=== PATIENT | female | born 1975 | race Caucasian/White ===

== ENCOUNTER 2018-03-19 23:17 | Emergency (ER) | payer SELFPAY ==
[2018-03-20] MEDS ORDERED: DEXAMETHASONE SOD PHOS INJ 10 MG/1 ML VIAL IM ONE (00:07)
--- NOTE | 2018-03-20 00:07 | ER Document Report ---
HPI - HPI Pain Level: 4 Notes: Patient is a 42-year-old female who presents to the ED complaining of a sore throat/nasal radha. over the last 2 days with occasional left ear pain. Patient states that she is still able to eat and drink without any difficulties, but does have a decreased p.o. intake due to the discomfort. She is urinating normally and having normal bowel movements. No history of peritonsillar/ tonsillar abscess. No other concerns or complaints at this time. She has been using some vbys-ycj-impchiv meds with minimal relief. Denies any headache, fever, neck pain, URI, chest pain, palpitations, syncope, cough, shortness of breath, wheeze, dyspnea, abdominal pain, nausea/vomiting/diarrhea, urinary retention, dysuria, hematuria, or rash. - ROS Systems Reviewed and Negative: Yes All other systems reviewed and negative - REPRODUCTIVE Reproductive: DENIES: : Past Medical History - Social History Smoking Status: Unknown if Ever Smoked Family History: Reviewed & Not Pertinent - Past Medical History Cardiac Medical History: Reports: Hx Hypertension Neurological Medical History: Reports: Hx Migraine Endocrine Medical History: Reports: Hx Hypothyroidism Past Surgical History: Reports: Hx Cholecystectomy, Hx Gastric Bypass Surgery, Hx Hysterectomy, Hx Tubal Ligation - Immunizations Hx Diphtheria, Pertussis, Tetanus Vaccination: Yes Vertical Provider Document - CONSTITUTIONAL Agree With Documented VS: Yes Notes: PHYSICAL EXAMINATION: GENERAL: Well-appearing, well-nourished and in no acute distress. A&Ox4. Answers questions appropriately. Moves comfortably w/o notable distress HEAD: Atraumatic, normocephalic. EYES: Pupils equal round and reactive to light, extraocular movements intact, sclera anicteric, conjunctiva are normal. ENT: EAC clear b/l. TM's intact b/l without erythema, fluid, or perforation. Nares patent and without discharge. oropharynx mild erythema without exudates. 1+ tonsilar hypertrophy without erythema or exudate. No palatine shift. Uvula midline. No tongue protrusion. No drooling, hoarseness, or airway compromise. Moist mucous membranes. No sinus tenderness. NECK: Normal range of motion, supple without lymphadenopathy. No rigidity/ meningismus. LUNGS: Breath sounds clear to auscultation bilaterally and equal. No wheezes rales or rhonchi. No retractions HEART: Regular rate and rhythm without murmurs, rubs, gallops. ABDOMEN: Soft, nontender, nondistended abdomen. No guarding, no rebound. No masses appreciated. Normal bowel sounds present. No CVA tenderness bilaterally. No hepatosplenomegaly. NEUROLOGICAL: Normal speech, normal gait. PSYCH: Normal mood, normal affect. SKIN: Warm, Dry, normal turgor, no rashes or lesions noted. - INFECTION CONTROL TRAVEL OUTSIDE OF THE [place] IN LAST 30 DAYS: No Course - Re-evaluation Re-evalutation: 03/20/18 00:32 Patient is an afebrile, well-hydrated, 42-year-old female who presents to the ED with acute pharyngitis, suspect viral. Vitals are acceptable without any significant tachycardia, tachypnea, or hypoxia. PE is otherwise unremarkable. Rapid strep was negative with a throat culture pending. Patient is nontoxic- appearing and is tolerating p.o. without difficulties. No further labs or imaging warranted at this time. Decadron given IM today. Low suspicion for any meningitis, sepsis, peritonsillar/pharyngeal abscess, respiratory compromise , Leo's, or other emergent systemic condition at this time. Patient is aware this condition can change from initial presentation and she needs to monitor symptoms closely. Conservative measures otherwise for symptoms. Recheck with your PCM in 2-3 days. Return to the ED with any worsening/ concerning symptoms otherwise as reviewed in discharge. Patient is in agreement. - Vital Signs Vital signs: Temp Pulse Resp BP Pulse Ox 98.0 F 74 16 121/76 100 03/19/18 23:25 03/19/18 23:25 03/19/18 23:25 03/19/18 23:25 03/19/18 23:25 Discharge - Discharge Clinical Impression: Acute pharyngitis Qualifiers: Pharyngitis/tonsillitis etiology: unspecified etiology Qualified Code(s): J02.9 - Acute pharyngitis, unspecified Condition: Stable Disposition: HOME, SELF-CARE Instructions: Sore Throat ([facility]) Additional Instructions: Maintain adequate fluid intake Take meds as directed Salt water gargles, throat sprays, mouthwash rinse, peroxide gargles tylenol/ibuprofen as needed over the counter cold medication as needed for symptoms F/u: with your PCM in 2-3 days for a recheck Consider consult with ENT for ongoing/worsening symptoms Return to the ED with any fever, worsening pain, chest pain, neck pain/stiffness , shortness of breath, cough, drooling, trouble swallowing/breathing, abdominal pain, n/v/d, rash, or worsening/concerning symptoms otherwise. Referrals: TESSA JESSICA DO [ASSOCIATE] - Follow up as needed
[2018-03-20 01:20] VITALS: BP 132/67
== END 2018-03-20 01:17 | disposition home or self-care (01) ==
LOC: ER 23:17
DX: J02.9 Acute pharyngitis, unspecified (principal); R09.81 Nasal congestion; H92.02 Otalgia, left ear; I10 Essential (primary) hypertension
CPT/HCPCS: 99283; 96372; 87070; 87880; J1100

== ENCOUNTER 2018-11-17 11:29 | Emergency (ER) | payer SELFPAY ==
[2018-11-17 11:36] VITALS: BP 103/73
[2018-11-17] MEDS ORDERED: MORPHINE SULFATE 10 MG/ML INJ IV ONE ×2 (12:17→14:29)
[2018-11-17] MEDS ORDERED: NORMAL SALINE 1000 ML 1,000 ML IV PRN (12:17)
[2018-11-17] MEDS ORDERED: ONDANSETRON HCL INJ/PF 4 MG/2 ML SDV IV ONE ×2 (12:18→14:29)
--- NOTE | 2018-11-17 12:21 | ER Document Report ---
ED Medical Screen (RME) - General Chief Complaint: Abdominal Pain Stated Complaint: ABDOMINAL PAIN Time Seen by Provider: 11/17/18 12:06 TRAVEL OUTSIDE OF THE [place] IN LAST 30 DAYS: No - HPI Notes: 11/17/18 12:19 patient is a 43 yr old female that presents to the emergency department for chief complaint of Sudden onset nausea vomiting with severe epigastric pain that started approximately 6 hours ago. Patient has had gastric bypass surgery after having a sleeve and LAP-BAND that was unsuccessful, gastric bypass surgery in 2013. 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 Patient did have 2 bowel movements today. Is any fevers or chills. Is not taking anything vgbl-lpj-ktuovxk medication. worse with time, patient feels better bent over in chair. Other than noted above, the 12 point review of systems was reviewed with the patient and were negative, all pertinent findings are included in the HPI. PHYSICAL EXAMINATION: Vital signs reviewed. GENERAL: Well-appearing, well-nourished and in moderate distress HEAD: Atraumatic, normocephalic. NECK: Normal range of motion CV: Heart regular rate and rhythm LUNGS: No respiratory distress ABD: epigastric abd pain Musculoskeletal: Normal range of motion NEUROLOGICAL: Normal speech PSYCH: Normal mood, normal affect. MDM: Patient seen and examined for rapid initial assessment. Vital signs reviewed. A comprehensive ED assessment and evaluation of the patient, analysis of test results and completion of the medical decision making process will be conducted by additional ED providers. *Note is created using voice recognition software and may contain spelling, syntax or grammatical errors. - Related Data Allergies/Adverse Reactions: fluorescein [Fluorescein] Allergy (Verified 11/17/18 12:11) Past Medical History - Past Medical History Cardiac Medical History: Reports: Hx Hypertension Neurological Medical History: Reports: Hx Migraine Endocrine Medical History: Reports: Hx Hypothyroidism Renal/ Medical History: Denies: Hx Peritoneal Dialysis Past Surgical History: Reports: Hx Cholecystectomy, Hx Gastric Bypass Surgery, Hx Hysterectomy, Hx Tubal Ligation - Immunizations Hx Diphtheria, Pertussis, Tetanus Vaccination: Yes Physical Exam - Vital signs Vitals: Temp Pulse Resp BP Pulse Ox 98.0 F 58 L 20 103/73 98 11/17/18 11:34 11/17/18 11:34 11/17/18 11:34 11/17/18 11:34 11/17/18 11:34 Course - Vital Signs Vital signs: Temp Pulse Resp BP Pulse Ox 98.0 F 58 L 20 103/73 98 11/17/18 11:34 11/17/18 11:34 11/17/18 11:34 11/17/18 11:34 11/17/18 11:34
[2018-11-17 12:50] LABS: ABSOLUTE BASOPHILS # (AUTO) 0.1 10^3/uL (0.0-0.2); ABSOLUTE EOSINOPHILS # (AUTO) 0.1 10^3/uL (0.0-0.6); ABSOLUTE MONOCYTES (AUTO) 0.4 10^3/uL (0.1-1.4); ABSOLUTE NEUT (AUTO) 3.3 10^3/uL (1.7-8.2); BASOPHILS % (AUTO) 1.2 % (0-2); EOSINOPHILS % (AUTO) 1.6 % (0-6); HEMATOCRIT 42.7 % (36.0-47.0); HEMOGLOBIN 14.4 g/dL (12.0-15.5); LYMPHOCYTES % (AUTO) 21.4 % (13-45); MEAN CORPUSCULAR HEMOGLOBIN 28.3 pg (27.0-33.4); MEAN CORPUSCULAR HGB CONC 33.9 g/dL (32.0-36.0); MEAN CORPUSCULAR VOLUME 84 fl (80-97); PLATELET COUNT 232 10^3/uL (150-450); RED CELL DISTRIBUTION WIDTH 14.1 % (11.5-14.0); SEGMENTED NEUTROPHILS % (AUTO) 67.8 % (42-78); TOTAL CELLS COUNTED % (AUTO) 100 %; WHITE BLOOD COUNT 4.9 10^3/uL (4.0-10.5)
[2018-11-17] MEDS ORDERED: KETOROLAC TROMETHAMINE INJ/PF 30 MG/1 ML SDV IV ONE (13:06)
[2018-11-17] MEDS ORDERED: PROCHLORPERAZINE EDISYLATE INJ 10 MG/2 ML VIAL IV ONE (13:06)
[2018-11-17 13:07] LABS: ALANINE AMINOTRANSFERASE 22 U/L (9-52); ALBUMIN 4.4 g/dL (3.5-5.0); ALKALINE PHOSPHATASE 52 U/L (38-126); ANION GAP 7 (5-19); ASPARTATE AMINO TRANSFERASE 15 U/L (14-36); BILIRUBIN,DIRECT 0.3 mg/dL (0.0-0.4); BILIRUBIN,TOTAL 0.6 mg/dL (0.2-1.3); BLOOD UREA NITROGEN 12 mg/dL (7-20); CALCIUM 9.2 mg/dL (8.4-10.2); CARBON DIOXIDE 25 mmol/L (22-30); CHLORIDE 109 mmol/L (98-107); CREATINE KINASE 56 U/L (30-135); GLUCOSE 87 mg/dL (75-110); LIPASE 138.5 U/L (23-300); POTASSIUM 4.6 mmol/L (3.6-5.0); SODIUM 141.4 mmol/L (137-145); TOTAL PROTEIN 7.4 g/dL (6.3-8.2)
--- NOTE | 2018-11-17 13:18 | RADIOLOGY REPORT (SQ) ---
EXAM DESCRIPTION: CHEST SINGLE VIEW COMPLETED DATE/TIME: 11/17/2018 12:52 pm REASON FOR STUDY: epigastric pain COMPARISON: None. EXAM PARAMETERS: NUMBER OF VIEWS: One view. TECHNIQUE: Single frontal radiographic view of the chest acquired. RADIATION DOSE: NA LIMITATIONS: None. FINDINGS: LUNGS AND PLEURA: No opacities, masses or pneumothorax. No pleural effusion. MEDIASTINUM AND HILAR STRUCTURES: No masses. Contour normal. HEART AND VASCULAR STRUCTURES: Heart normal in size. Normal vasculature. BONES: No acute findings. HARDWARE: None in the chest. OTHER: No other significant finding. IMPRESSION: No acute abnormality of the lungs in frontal projection. TECHNICAL DOCUMENTATION: JOB ID: [id number] [employer] All Rights Reserved Reading location - IP/workstation name: [email or web address]
[2018-11-17 13:26] LABS: CREATINE KINASE MB < 0.22 ng/mL (<4.55); TROPONIN I < 0.012 ng/mL
--- NOTE | 2018-11-17 14:15 | RADIOLOGY REPORT (SQ) ---
EXAM DESCRIPTION: CT ABD/PELVIS WITH IV ONLY COMPLETED DATE/TIME: 11/17/2018 1:55 pm REASON FOR STUDY: epigastric pain, hx of gastric bypass w/adhesions COMPARISON: None. TECHNIQUE: CT scan of the abdomen and pelvis performed using helical scanning technique with dynamic intravenous contrast injection. No oral contrast. Images reviewed with lung, soft tissue, and bone windows. Reconstructed coronal and sagittal MPR images reviewed. Delayed images for evaluation of the urinary system also acquired. All images stored on PACS. All CT scanners at this facility use dose modulation, iterative reconstruction, and/or weight based d osing when appropriate to reduce radiation dose to as low as reasonably achievable (ALARA). [facility]: Dose Right [facility]: CareDose [facility]: Dose Right [facility]: Teradose 4D [facility]: Sosedi CONTRAST TYPE AND DOSE: contrast/concentration: Isovue 350.00 mg/ml; Total Contrast Delivered: 94.0 ml; Total Saline Delivered: 70.0 ml RENAL FUNCTION: BUN 12 creatinine 0.64 RADIATION DOSE: CT Rad equipment meets quality standard of care and radiation dose reduction techniq ues were employed. CTDIvol: NaN - NaN mGy. DLP: 0 mGy-cm.. LIMITATIONS: None. FINDINGS: LOWER CHEST: No significant findings. No nodules or infiltrates. LIVER: Normal size. No masses. No dilated ducts. SPLEEN: The size of the spleen is borderline, near 13 cm. PANCREAS: No masses. No significant calcifications. No adjacent inflammation or peripancreatic fluid collections. Pancreatic duct not dilated. GALLBLADDER: Surgically absent. ADRENAL GLANDS: No significant masses or asymmetry. RIGHT KIDNEY AND URETER: No solid masses. No significant calcifications. No hydronephrosis or hyd roureter. LEFT KIDNEY AND URETER: No solid masses. No significant calcifications. No hydronephrosis or hydr oureter. AORTA AND VESSELS: No aneurysm. No dissection. Renal arteries, SMA, celiac without stenosis. RETROPERITONEUM: No retroperitoneal adenopathy, hemorrhage or masses. BOWEL AND PERITONEAL CAVITY: No masses or inflammatory changes. No free fluid or peritoneal masses. APPENDIX: Not identified. PELVIS: No mass. No free fluid. Normal bladder. ABDOMINAL WALL: No masses. No hernias. BONES: No significant or acute findings. OTHER: No other significant finding. IMPRESSION: Borderline splenomegaly. No other significant finding in the abdomen or pelvis. TECHNICAL DOCUMENTATION: JOB ID: [id number] Quality ID # [id number]: Final reports with documentation of one or more dose reduction techniques (e.g., Au tomated exposure control, adjustment of the mA and/or kV according to patient size, use of iterative reconstruction technique) 2010 [employer]- All Rights Reserved Reading location - IP/workstation name: [email or web address]
--- NOTE | 2018-11-17 15:00 | ER Document Report ---
Entered by SHAMEKA BRENNAN SCRIBE 11/17/18 1427 Acting as scribe for:CAMRON CANALES MD ED General - General Chief Complaint: Nausea/Vomiting Stated Complaint: ABDOMINAL PAIN Time Seen by Provider: 11/17/18 12:06 Notes: Patient is a 43-year-old female presenting to the emergency department complaining of abdominal pain with associated vomiting. Patient states that she woke up at 0500 this morning and pain. Patient states that a few minutes after she woke up she began vomiting and the pain has been constant. Patient states that she has had pain similar to this before but nothing has ever been that this severe, or constant. TRAVEL OUTSIDE OF THE [place] IN LAST 30 DAYS: No - Related Data Allergies/Adverse Reactions: fluorescein [Fluorescein] Allergy (Verified 11/17/18 12:11) Past Medical History - General Information source: Patient - Social History Smoking Status: Current Every Day Smoker Cigarette use (# per day): Yes - 1/2 PPD Chew tobacco use (# tins/day): No Smoking Education Provided: No Frequency of alcohol use: Rare Drug Abuse: None Lives with: Family Family History: Reviewed & Not Pertinent Patient has suicidal ideation: No Patient has homicidal ideation: No - Past Medical History Cardiac Medical History: Reports: Hx Hypertension Neurological Medical History: Reports: Hx Migraine Endocrine Medical History: Reports: Hx Hypothyroidism Renal/ Medical History: Reports: Hx Ovarian Cysts GI Medical History: Reports: Hx Gastroesophageal Reflux Disease Past Surgical History: Reports: Hx Abdominal Surgery - Laparoscopy finding adhesions between the liver and the old LAP-BAND port., Hx Cholecystectomy, Hx Gastric Bypass Surgery - Gastric sleeve, then LAP-BAND, then gastric bypass surgery in 2013, Hx Hysterectomy, Hx Tubal Ligation - Immunizations Hx Diphtheria, Pertussis, Tetanus Vaccination: Yes Review of Systems - Review of Systems Constitutional: No symptoms reported EENT: No symptoms reported Cardiovascular: No symptoms reported Respiratory: No symptoms reported Gastrointestinal: See HPI, Abdominal pain, Vomiting Genitourinary: No symptoms reported Female Genitourinary: No symptoms reported Musculoskeletal: No symptoms reported Skin: No symptoms reported Hematologic/Lymphatic: No symptoms reported Neurological/Psychological: No symptoms reported -: Yes All other systems reviewed and negative Physical Exam - Vital signs Vitals: Temp Pulse Resp BP Pulse Ox 98.0 F 58 L 20 103/73 98 11/17/18 11:34 11/17/18 11:34 11/17/18 11:34 11/17/18 11:34 11/17/18 11:34 - Notes Notes: Physical Exam: General: Alert, appears well. HEENT: Normocephalic. Atraumatic. PERRL. Extraocular movements intact. Oropharynx clear. Neck: Supple. Non-tender. Respiratory: No respiratory distress. Clear and equal breath sounds bilaterally. Cardiovascular: Regular rate and rhythm. Abdominal: Right lower quadrant tenderness to palpation. Right lateral-mid abdomen tenderness to palpation. Right upper quadrant tenderness to palpation. Epigastric tenderness to palpation.Guarding on the right side of the abdomen. Decreased Bowel Sounds. Back: Non-tender. No deformity or step off. Extremities: Moves all four extremities. Upper extremities: Normal inspection. Normal ROM. Lower extremities: Normal inspection. No edema. Normal ROM. Neurological: Normal cognition. AAOx4. Normal speech. Psychological: Normal affect. Normal Mood. Skin: Warm. Dry. Normal color. Course - Re-evaluation Re-evalutation: 11/17/18 17:26 Reevaluation after the GI cocktail shows the patient seems to be much more comfortable. She admits that it does feel better but there is still some discomfort. Palpating her abdomen shows the epigastric region to be considerably less tender now than it has been even after she received morphine earlier. She will get a repeat dose of Maalox and viscous lidocaine. Her urinalysis shows 80 ketones, her blood sugar was 87. She will be given a liter of D5 normal saline IV. 11/17/18 18:55 Patient is now sitting up on bed talk with the family. She is feeling much better after the second dose of the GI cocktail. - Vital Signs Vital signs: Temp Pulse Resp BP Pulse Ox 98.0 F 58 L 20 103/73 98 11/17/18 11:34 11/17/18 11:34 11/17/18 11:34 11/17/18 11:34 11/17/18 11:34 - Laboratory Result Diagrams: 11/17/18 12:34 11/17/18 12:34 Laboratory results interpreted by me: 11/17/18 11/17/18 11/17/18 12:34 12:34 16:40 RDW 14.1 H Chloride 109 H Urine Ketones 80 H Urine Blood SMALL H Urine Urobilinogen 2.0 H - Diagnostic Test Radiology reviewed: Image reviewed, Reports reviewed - Chest x-ray is unremarkable. CT scan is read as borderline splenomegaly with no other significant findings in the abdomen pelvis. The scan was done with IV contrast only. I had another radiologist review the scan and she felt that there was some fluid in the right pelvis suggesting a ruptured ovarian follicle or cyst. Recommendation was for upper GI to exclude GI pathology that may have been missed with out oral contrast in the CT scan. Upper GI shows the patient is post gastric bypass. There is a fairly large fundal pouch with mild narrowing of the outlet, but no delay in gastric emptying. There is unprovoked gastroesophageal reflux throughout the study. Discharge - Discharge Clinical Impression: Epigastric abdominal pain, Dehydration GERD (gastroesophageal reflux disease) Qualifiers: Esophagitis presence: esophagitis presence not specified Qualified Code(s): K21.9 - Gastro-esophageal reflux disease without esophagitis Condition: Stable Disposition: HOME, SELF-CARE Additional Instructions: Reflux Disease (GERD) Gastro-Esophageal Reflux Disease (GERD) is caused by stomach acid refluxing back up into the esophagus. The valve at the end of the esophagus may be weak. This is common in persons with a hiatal hernia. GERD symptoms can include indigestion, chest pain, heartburn, or food "sticking." Certain foods, alcohol, and aspirin can make GERD worse. Treatment depends on the severity. Usually, antacids or acid-suppressing medicines are used. When the esophagus is acutely inflamed, the physician will often prescribe membrane-protective drugs such as Carafate. Some patients benefit from medication such as Reglan that tightens the valve at the top of the stomach. Avoid those foods that bring on your symptoms. For many people, these foods are coffee, chocolate, onions, garlic, and carbonated drinks. Don't use alcohol, aspirin, caffeine, or tobacco. Don't eat late at night -- within 4 hours of bedtime. Don't over-eat. If necessary, elevate the head of your bed about 4 inches so that stomach acid will not roll up into your esophagus. Call the doctor if you develop severe chest pain, inability to swallow fluids, fever, or worsening symptoms. Take Prilosec OTC once daily. Eat a very bland diet and avoid carbonated beverages, acidic drinks such as fruit juices, spicy foods, or anything that makes the heartburn worse. Take Mylanta or Maalox between meals and at bedtime for the next few days. Drink lots of water today, as you are a little dehydrated, and the contrast from the CT scan earlier will cause you to become more dehydrated. Elevating the head of the bed may help some with your reflux. Follow-up with local medical doctor if not improving. RETURN TO THE EMERGENCY ROOM IF ANY NEW OR WORSENING SYMPTOMS. Scribe Attestation: 11/17/18 16:13 I personally performed the services described in the documentation, reviewed and edited the documentation which was dictated to the scribe in my presence, and it accurately records my words and actions. I personally performed the services described in the documentation, reviewed and edited the documentation which was dictated to the scribe in my presence, and it accurately records my words and actions.
--- NOTE | 2018-11-17 16:30 | RADIOLOGY REPORT (SQ) ---
EXAM DESCRIPTION: UPPER GI/SM BOWEL COMPLETED DATE/TIME: 11/17/2018 4:13 pm REASON FOR STUDY: post gastric bypass, epigastric R abd pain COMPARISON: PA chest 11/17/2018 CT abdomen pelvis 11/17/2018 TECHNIQUE: Under fluoroscopic guidance, patient ingested effervescent granules followed by thick an d thin barium. Fluoroscopic spot images and routine radiographic images acquired and stored on PACS . Following evaluation of esophagus and stomach, additional barium administered with serial delayed ab dominal radiographs until colonic identification. Fluoroscopic images recorded of the terminal ileu m. 12 MM BARIUM TABLET GIVEN: No. FLUOROSCOPY TIME: 2 minutes 40 seconds 21 digital fluoroscopic images saved to PACS. LIMITATIONS: None. FINDINGS: NEUROMUSCULAR COORDINATION OF SWALLOW: Normal. No aspiration. ESOPHAGEAL MOTILITY: Normal peristalsis. No esophageal spasm. ESOPHAGEAL MUCOSA: Normal mucosa without masses or ulceration. GASTRO-ESOPHAGEAL JUNCTION: No hiatal hernia. However there is unprovoked gastroesophageal reflux th roughout the study to the mid 3rd of the esophagus. STOMACH: Patient has a fairly large fundal gastric pouch of a Sruthi-en-Y bypass. Pouch is about 4 fani es biggger than a usual gastric fundal pouch. There is prompt emptying of the fundal gastric pouch through a narrowed anastomosis to normal caliber efferrent small bowel loop. No ulceration along the gastric outlet is definitely seen. DUODENUM: Excluded from the pathway of barium by Sruthi EN Y. PROXIMAL SMALL BOWEL: Normal as visualized. JEJUNUM: Normal mucosal pattern. No dilatation, segmentation, strictures or masses. ILEUM: Follow-up films demonstrate pooling of contrast in left upper quadrant nondilated small bowel loops. TERMINAL ILEUM AND ILEO-CECAL VALVE: Not yet opacified with barium PROXIMAL COLON: Not yet opacified with barium NON-GI TRACT STRUCTURES: CT scan earlier today. There is IV contrast in nondilated bilateral uretera l and renal collecting systems. Clips right upper quadrant post cholecystectomy. Bilateral SI joint sclerosis OTHER: Findings called to Dr. Roberts in the emergency room IMPRESSION: Post gastric bypass. Fairly large fundal pouch with mild narrowing of the outlet. No d elay in gastric emptying. No gross ulceration at the gastric pouch outlet. Unprovoked gastroesophageal reflux throughout the study By 1 hour, follow-up through small bowel films demonstrate the majority of the oral contrast in nondi stended jejunum and ileum. Contrast had not yet reached the distal ileum/ cecum. COMMENT: Quality ID [id number]: Final reports for procedures using fluoroscopy that document radiation exp osure indices, or exposure time and number of fluorographic images (if radiation exposure indices are not available) TECHNICAL DOCUMENTATION: JOB ID: [id number] [employer]- All Rights Reserved Reading location - IP/workstation name: [email or web address]
[2018-11-17] MEDS ORDERED: LIDOCAINE 2% VISCOUS SOLN 20 ML UDCUP PO ONE ×2 (16:40→17:24)
[2018-11-17] MEDS ORDERED: MAG HYDROX/AL HYDROX/SIMETH SUSP 30 ML UDCUP PO ONE ×2 (16:40→17:24)
[2018-11-17 17:01] LABS: APPEARANCE,URINE CLEAR; BILIRUBIN,URINE NEGATIVE (NEGATIVE); COLOR,URINE YELLOW; GLUCOSE, URINE NEGATIVE (NEGATIVE); KETONES,URINE 80 mg/dL (NEGATIVE); LEUKOCYTE ESTERASE,URINE NEGATIVE (NEGATIVE); NITRITE,URINE NEGATIVE (NEGATIVE); PROTEIN,URINE NEGATIVE (NEGATIVE)
[2018-11-17 17:03] LABS: URINE SPECIFIC GRAVITY > 1.060
[2018-11-17] MEDS ORDERED: DEXTROSE 5%-NORMAL SALINE 1,000 ML IV ONE (17:25)
--- NOTE | 2018-11-17 17:56 | EKG REPORT ---
SEVERITY:- OTHERWISE NORMAL ECG - SINUS BRADYCARDIA : Confirmed by: Shiv Cadet 17-Nov-2018 17:55:39
== END 2018-11-17 19:14 | disposition home or self-care (01) ==
LOC: ER 11:29
DX: K21.9 Gastro-esophageal reflux disease without esophagitis (principal); R10.13 Epigastric pain; E86.0 Dehydration; R11.2 Nausea with vomiting, unspecified; F17.210 Nicotine dependence, cigarettes, uncomplicated
CPT/HCPCS: 93005; 96376; 99284; 96361; 96374; 96375; 36415; 82553; 82550; 83690; 85025; 80053; 81001; 84484; 71045; 74249; 74177; 93010; J3490; J1885; J2270; J0780; J2405; J7042; J7030

== ENCOUNTER → 2019-08-08 | Outpatient (CLI) | payer SELFPAY ==
[2019-08-08 09:05] LABS: A TYPE INFLUENZA AG NEGATIVE (NEGATIVE); B INFLUENZA AG NEGATIVE (NEGATIVE)
--- NOTE | 2019-08-09 15:08 | PDOC RDC NOTE ---
RDC Note - Note Date Date: 08/09/19 Allergy/ Laboratory: fluorescein [Fluorescein] Allergy (Verified 11/17/18 12:11) 08/08/19 08:12 Throat Throat Culture - Final Group A Beta Streptococcus Normal Janie Influenza A (Rapid) NEGATIVE (NEGATIVE) 08/08/19 08:12 Influenza B (Rapid) NEGATIVE (NEGATIVE) 08/08/19 08:12 Group A Strep Rapid NEGATIVE (NEGATIVE) 08/08/19 08:12 Notes: Received positive throat culture results 08/09/2019, 1500, Group A beta Strep. Notified patient by phone. She states she does not have PCP. Educated on care of strep throat, precautions, symptoms to watch for, treatment, and submitted Rx to her pharmacy, [facility].
== END ==
LOC: RDC 08:02
PROVIDERS: ATTEND Registered Nurse
DX: Z20.828 Contact with and (suspected) exposure to other viral communicable diseases (principal)
CPT/HCPCS: 36415; 87070; 87077; 87635; 87804; 87880

== ENCOUNTER 2019-09-02 14:44 | Emergency (ER) | payer SELFPAY ==
[2019-09-02] MEDS ORDERED: KETOROLAC TROMETHAMINE INJ/PF 30 MG/1 ML SDV IM ONE (15:34)
--- NOTE | 2019-09-02 15:40 | ER Document Report ---
ED Head/Face/Scalp Injury - General Chief Complaint: Nose Pain Stated Complaint: NOSE INJURY Time Seen by Provider: 09/02/19 15:34 Primary Care Provider: DENNIS BREWSTER MD [ACTIVE STAFF] - Follow up as needed Mode of Arrival: Ambulatory Information source: Patient Notes: 44-year-old female presented to ED for complaint of pain to her nose since Thursday during intercourse. Patient is alert oriented respirations regular nonlabored speaking in full sentences. She states she was having intercourse on Thursday when she smashed her nose and the pain has been continuing since then. She states she had a video chat with urgent care who told her she would need to come to the emergency room. TRAVEL OUTSIDE OF THE [place] IN LAST 30 DAYS: No - HPI Patient complains to provider of: Contusion, Pain Injury to: Nose Location of problem: Nose Occurred: Last week - Thursday Where: Home, Indoors Timing: Still present Context: Direct blow Loss consciousness: No loss of consciousness Remembers: Injury, Coming to hospital - Related Data Allergies/Adverse Reactions: fluorescein [Fluorescein] Allergy (Verified 11/17/18 12:11) Past Medical History - General Information source: Patient - Social History Smoking Status: Current Every Day Smoker Cigarette use (# per day): Yes - Half pack a day Chew tobacco use (# tins/day): No Smoking Education Provided: Yes - 4 minutes Frequency of alcohol use: Rare Drug Abuse: None Lives with: Spouse/Significant other Family History: Reviewed & Not Pertinent Patient has suicidal ideation: No Patient has homicidal ideation: No - Past Medical History Cardiac Medical History: Reports: Hx Hypertension - Resolved after weight loss Pulmonary Medical History: Reports: Hx Sleep Apnea - Resolved after weight loss EENT Medical History: Reports: None Neurological Medical History: Reports: Hx Migraine Endocrine Medical History: Reports: Hx Diabetes Mellitus Type 2 - Resolved after weight loss, Hx Hypothyroidism Renal/ Medical History: Reports: Hx Ovarian Cysts Malignancy Medical History: Reports: None GI Medical History: Reports: Hx Gastroesophageal Reflux Disease, Hx Ulcer Musculoskeletal Medical History: Reports None Skin Medical History: Reports None Psychiatric Medical History: Reports: None Traumatic Medical History: Reports: None Infectious Medical History: Reports: None Past Surgical History: Reports: Hx Abdominal Surgery - Laparoscopy finding adhesions between the liver and the old LAP-BAND port., Hx Cholecystectomy, Hx Gastric Bypass Surgery - Gastric sleeve, then LAP-BAND, then gastric bypass surgery in 2014, Hx Hysterectomy, Hx Tubal Ligation - Immunizations Hx Diphtheria, Pertussis, Tetanus Vaccination: Yes Review of Systems - Review of Systems Constitutional: No symptoms reported EENT: Nose pain - Since Thursday, "smashed her nose during intercourse " Cardiovascular: No symptoms reported Respiratory: No symptoms reported Gastrointestinal: No symptoms reported Genitourinary: No symptoms reported Female Genitourinary: No symptoms reported Musculoskeletal: No symptoms reported Skin: No symptoms reported Hematologic/Lymphatic: No symptoms reported Neurological/Psychological: No symptoms reported -: Yes All other systems reviewed and negative Physical Exam - Vital signs Vitals: Temp Pulse Resp BP Pulse Ox 98.7 F 72 16 105/71 99 09/02/19 14:48 09/02/19 14:48 09/02/19 14:48 09/02/19 14:48 09/02/19 14:48 Interpretation: Normal - General General appearance: Appears well, Alert - HEENT Head: Normocephalic, Atraumatic Eyes: Normal Pupils: PERRL Ears: Normal External canal: Normal Tympanic membrane: Normal Sinus: Normal Nasal: Swelling Mouth/Lips: Normal Mucous membranes: Normal Pharynx: Normal Neck: Normal - Respiratory Respiratory status: No respiratory distress Chest status: Nontender Breath sounds: Normal Chest palpation: Normal - Cardiovascular Rhythm: Regular Heart sounds: Normal auscultation Murmur: No - Abdominal Inspection: Normal Distension: No distension Bowel sounds: Normal Tenderness: Nontender Organomegaly: No organomegaly - Back Back: Normal, Nontender - Extremities General upper extremity: Normal inspection, Nontender, Normal color, Normal ROM, Normal temperature General lower extremity: Normal inspection, Nontender, Normal color, Normal ROM, Normal temperature, Normal weight bearing. No: Susan's sign - Neurological Neuro grossly intact: Yes Cognition: Normal Orientation: AAOx4 [place] Coma Scale Eye Opening: Spontaneous [place] Coma Scale Verbal: Oriented [place] Coma Scale Motor: Obeys Commands June Coma Scale Total: 15 Speech: Normal Motor strength normal: LUE, RUE, LLE, RLE Sensory: Normal - Psychological Associated symptoms: Normal affect, Normal mood - Skin Skin Temperature: Warm Skin Moisture: Dry Skin Color: Normal Course - Re-evaluation Re-evalutation: 09/02/19 16:43 X-rays were negative no bony fractures to the nose. Patient was given instructions on Tylenol ice packs warm packs and follow-up with primary care. - Vital Signs Vital signs: Temp Pulse Resp BP Pulse Ox 98.3 F 58 L 16 116/70 100 09/02/19 16:42 09/02/19 16:42 09/02/19 16:42 09/02/19 16:42 09/02/19 16:42 - Diagnostic Test Radiology reviewed: Image reviewed, Reports reviewed Discharge - Discharge Clinical Impression: Contusion of nose, initial encounter Condition: Stable Disposition: HOME, SELF-CARE Additional Instructions: CONTUSION: Your injury has resulted in a contusion -- a crushing of the deep tissues. No injury to important structures was detected during the physician's exam. Contusions vary in the amount of pain they cause, and in the length of time required for healing. Typically, the area will become bruised, and will remain painful to touch for two or three weeks. However, most patients are back to working and playing within a few days. After the initial period of rest and cold-packs, your symptoms (together with the doctor's recommendations) will determine how rapidly you can get back to full activity. Usually this means "do what feels okay, but don't do things that hurt." If re-examination was recommended, it's important to follow up as instructed. Call the doctor or return any time if pain increases, if swelling becomes severe, if you develop numbness or weakness in an injured extremity, or if any other alarming symptoms occur. USE OF TYLENOL (ACETAMINOPHEN): Acetaminophen may be taken for pain relief or fever control. It's much safer than aspirin, offering a wider range of "safe" dosages. It is safe during . Some brand names are Tylenol, Panadol, Datril, Anacin 3, Tempra, and Liquiprin. Acetaminophen can be repeated every four hours. The following are maximum recommended dosages: WEIGHT Dose Drops Elixir Chewable(80mg) (LBS.) drprs=droppers tsp=teaspoon 6 40 mg 0.4 ml (1/2) 6-11 80 mg 0.8 ml (full) tsp 1 tab 12-16 120 mg 1 1/2 drprs 3/4 tsp 1 1/2 tabs 17-23 160 mg 2 drprs 1 tsp 2 tabs 24-30 240 mg 3 drprs 1 1/2 tsp 3 tabs 30-35 320 mg 2 tsp 4 tabs 36-41 360 mg 2 1/4 tsp 4 1/2 tabs 42-47 400 mg 2 1/2 tsp 5 tabs 48-53 480 mg 3 tsp 6 tabs 54-59 520 mg 3 1/4 tsp 6 1/2 tabs 60-64 560 mg 3 1/2 tsp 7 tabs 65-70 600 mg 3 3/4 tsp 7 1/2 tabs 71-76 640 mg 4 tsp 8 tabs 77-82 720 mg 4 1/2 tsp 9 tabs 83-88 800 mg 5 tsp 10 tabs >89 pounds or adults 650 mg to 900 mg Acetaminophen can be repeated every four hours. Maximum dose not to exceed 4000 mg a day. These maximum recommended dosages are slightly higher than the dosages written on the product container, but these dosages are very safe and below the toxic dosage for acetaminophen. ICE PACKS: Apply ice packs frequently against the painful area. Many different schedules are recommended, such as "20 minutes on, 20 minutes off" or "one hour ice, two hours rest." If you need to work, you may need to go longer between ic e treatments. You should plan to have the area ice packed AT LEAST one fourth of the time. The ice should be applied over the wrap, tape, or splint, or over a layer of cloth -- not directly against the skin. Some ice bags have a built-in cloth and can be put directly on the skin. Toradol Injection You have been given an injection of ketorolac tromethamine (Toradol). This is an excellent, safe drug for pain control. It also has potent antiinflammatory action. You should have significant pain relief within about one hour. Toradol is not addicting and is non-sedating. It does not interfere with driving or work. Call or return if you develop itching, hives, shortness of breath, or rash. FOLLOW-UP CARE: If you have been referred to a physician for follow-up care, call the physicians office for an appointment as you were instructed or within the next two days. If you experience worsening or a significant change in your symptoms, notify the physician immediately or return to the Emergency Department at any time for re-evaluation. Forms: Smoking Cessation Education, Return to Work Referrals: DENNIS BREWSTER MD [ACTIVE STAFF] - Follow up as needed
--- NOTE | 2019-09-02 16:02 | RADIOLOGY REPORT (SQ) ---
EXAM DESCRIPTION: NOSE/NASAL BONES IMAGES COMPLETED DATE/TIME: 09/02/2019 3:47 pm REASON FOR STUDY: injury pain Thursday COMPARISON: None. NUMBER OF VIEWS: Three view. TECHNIQUE: Images of the facial bones acquired. LIMITATIONS: None. FINDINGS: ORBITS: No fracture or radiopaque foreign body. SINUSES: No mucosal thickening or air fluid levels. FACIAL BONES: No fracture. OTHER: No other finding. IMPRESSION: No fracture or radiopaque foreign body. TECHNICAL DOCUMENTATION: JOB ID: [id number] 2010 [employer]- All Rights Reserved Reading location - IP/workstation name: NEUROPHYSIOLOGICAL TECHNICIAN-[facility]-
[2019-09-02 16:46] VITALS: BP 116/70
== END 2019-09-02 16:46 | disposition home or self-care (01) ==
LOC: ER 14:44
DX: S00.33XA Contusion of nose, initial encounter (principal); X58.XXXA Exposure to other specified factors, initial encounter; Y92.009 Unspecified place in unspecified non-institutional (private) residence as the place of occurrence of the external cause; F17.210 Nicotine dependence, cigarettes, uncomplicated
CPT/HCPCS: 99406; 99283; 96372; 70160; J1885

== ENCOUNTER 2019-10-15 20:53 | Emergency (ER) | payer SELFPAY ==
[2019-10-15 23:57] LABS: ABSOLUTE BASOPHILS # (AUTO) 0.1 10^3/uL (0.0-0.2); ABSOLUTE EOSINOPHILS # (AUTO) 0.1 10^3/uL (0.0-0.6); ABSOLUTE LYMPHOCYTES (AUTO) 1.6 10^3/uL (0.5-4.7); ABSOLUTE MONOCYTES (AUTO) 0.5 10^3/uL (0.1-1.4); ABSOLUTE NEUT (AUTO) 3.5 10^3/uL (1.7-8.2); BASOPHILS % (AUTO) 1.2 % (0-2); EOSINOPHILS % (AUTO) 2.5 % (0-6); HEMATOCRIT 38.2 % (36.0-47.0); HEMOGLOBIN 13.4 g/dL (12.0-15.5); LYMPHOCYTES % (AUTO) 27.4 % (13-45); MEAN CORPUSCULAR HEMOGLOBIN 29.9 pg (27.0-33.4); MEAN CORPUSCULAR HGB CONC 35.1 g/dL (32.0-36.0); MEAN CORPUSCULAR VOLUME 85 fl (80-97); MONOCYTES % (AUTO) 8.5 % (3-13); PLATELET COUNT 245 10^3/uL (150-450); RED BLOOD COUNT 4.48 10^6/uL (3.72-5.28); RED CELL DISTRIBUTION WIDTH 13.4 % (11.5-14.0); SEGMENTED NEUTROPHILS % (AUTO) 60.4 % (42-78); TOTAL CELLS COUNTED % (AUTO) 100 %; WHITE BLOOD COUNT 5.7 10^3/uL (4.0-10.5)
[2019-10-16 00:12] LABS: ANION GAP 6 (5-19); BLOOD UREA NITROGEN 13 mg/dL (7-20); CALCIUM 8.8 mg/dL (8.4-10.2); CARBON DIOXIDE 27 mmol/L (22-30); CHLORIDE 106 mmol/L (98-107); GLUCOSE 74 mg/dL (75-110); POTASSIUM 3.8 mmol/L (3.6-5.0)
[2019-10-16] MEDS ORDERED: CEPHALEXIN 500 MG CAPSULE PO ONE (00:17)
--- NOTE | 2019-10-16 00:25 | ER Document Report ---
ED General - General Chief Complaint: Leg Swelling Stated Complaint: RIGHT LEG PAIN Information source: Patient TRAVEL OUTSIDE OF THE [place] IN LAST 30 DAYS: No - HPI Notes: 44-year-old female no significant medical history presents with several days of gradual onset gradually worsening constant spreading right lower leg redness pain and warmth without associated symptoms. Patient had sunburn last week and it resolved and then this redness developed shortly after. Patient became worried that this was a DVT because she had that in the past. Patient denies any fever, nausea vomiting, immune compromise, diabetes, HIV, recent antibiotics, lower extremity edema, chest pain, shortness of breath, trauma - Related Data Allergies/Adverse Reactions: fluorescein [Fluorescein] Allergy (Verified 11/17/18 12:11) Past Medical History - General Information source: Patient - Social History Smoking Status: Current Every Day Smoker Family History: Reviewed & Not Pertinent Patient has homicidal ideation: No - Past Medical History Cardiac Medical History: Reports: Hx Hypertension - Resolved after weight loss Pulmonary Medical History: Reports: Hx Sleep Apnea - Resolved after weight loss Neurological Medical History: Reports: Hx Migraine Endocrine Medical History: Reports: Hx Diabetes Mellitus Type 2 - Resolved after weight loss, Hx Hypothyroidism Renal/ Medical History: Reports: Hx Ovarian Cysts GI Medical History: Reports: Hx Gastroesophageal Reflux Disease, Hx Ulcer Past Surgical History: Reports: Hx Abdominal Surgery - Laparoscopy finding adhesions between the liver and the old LAP-BAND port., Hx Cholecystectomy, Hx Gastric Bypass Surgery - Gastric sleeve, then LAP-BAND, then gastric bypass surgery in 2013, Hx Hysterectomy, Hx Tubal Ligation - Immunizations Hx Diphtheria, Pertussis, Tetanus Vaccination: Yes Review of Systems - Review of Systems Notes: REVIEW OF SYSTEMS: CONSTITUTIONAL : Denies fever, chills, or sweats. EENT: Denies recent cold/sinus symptoms, denies throat pain CARDIOVASCULAR: Denies chest pain, [place]A RESPIRATORY: Denies cough, denies shortness of breath. GASTROINTESTINAL: Denies abdominal pain, nausea/vomiting. GENITOURINARY: Denies difficulty urinating, painful urination. FEMALE GENITOURINARY: Denies abnormal vaginal bleeding, vaginal discharge. MUSCULOSKELETAL: Denies neck pain, back pain. SKIN: +rash or skin lesions. HEMATOLOGIC : Denies easy bruising or bleeding. LYMPHATIC: Denies swollen, enlarged glands. NEUROLOGICAL: Denies headache, denies change in gait. PSYCHIATRIC: Denies anxiety or stress or depression. Physical Exam - Vital signs Vitals: Temp Pulse Resp BP Pulse Ox 98.8 F 71 16 125/67 100 10/15/19 21:32 10/15/19 21:32 10/15/19 21:32 10/15/19 21:32 10/15/19 21:32 - Notes Notes: PHYSICAL EXAMINATION: GENERAL: Well-appearing, well-nourished, talkative pleasant smiling middle-aged woman without any visible signs of discomfort sitting up in stretcher HEAD: Atraumatic, normocephalic. EYES: Pupils equal round and appropriate constriction, sclera anicteric, conjunctiva are normal. ENT: nares patent, moist mucous membranes. NECK: Normal range of motion, supple without lymphadenopathy LUNGS: Normal respiratory rate and effort, speaking in full sentences HEART: Regular rate, no JVD, no lower extremity edema ABDOMEN: Soft, nontender EXTREMITIES: Normal range of motion, no edema, area of erythema, warmth, and tenderness approximately 5 cm x 10 cm on lateral mid right lower leg without any edema, fluctuance, or discharge NEUROLOGICAL: Awake, alert, conversing appropriately, moves all extremities spontaneously. PSYCH: Normal mood, normal affect. SKIN: Warm, Dry, normal turgor Course - Re-evaluation Re-evalutation: 10/16/19 00:35 Exam consistent with nonpurulent cellulitis. Likely precipitated by sunburn. No immune compromise, no risk factors for complicated course. Performed bedside compression two-point ultrasound given patient's worries but presentation not consistent with DVT, two-point femoral and popliteal compression ultrasound negative fully compressible. Patient ready for discharge on Keflex with PCP follow-up. Given extensive return to ED precautions which patient demonstrated understanding of, denied having any other questions or concerns at time of discharge. - Vital Signs Vital signs: Temp Pulse Resp BP Pulse Ox 98.8 F 71 16 125/67 100 10/15/19 21:35 10/15/19 21:32 10/15/19 21:32 10/15/19 21:32 10/15/19 21:32 - Laboratory Result Diagrams: 10/15/19 23:39 10/15/19 23:39 Laboratory results interpreted by me: 10/15/19 23:39 Glucose 74 L Procedures - Ultrasound/Bedside Ultrasound/Bedside Time completed: 00:15 Ultrasound: Normal Notes: 10/16/19 00:37 Popliteal and femoral right compression ultrasound negative for DVT. Discharge - Discharge Clinical Impression: Cellulitis Qualifiers: Site of cellulitis: extremity Site of cellulitis of extremity: lower extremity Laterality: right Qualified Code(s): L03.115 - Cellulitis of right lower limb Condition: Good Disposition: HOME, SELF-CARE Additional Instructions: Cellulitis You have an infection of your skin and underlying soft tissues called cellulitis. This is due to bacteria, which can enter through any break in the skin, or even through an irritated hair follicle. Untreated, cellulitis will usually worsen. Antibiotics are required. Usually, warm packs or warm soaks, and elevation of the infected area are recommended. You should start getting better within 24 to 36 hours. Most infections respond quickly to the right medication. Follow-up care is important, however, to check for abscess (boil) formation, unsuspected foreign body, or resistant infection. If you develop fever, chills, or if the area of infection is becoming rapidly more swollen or painful, call the doctor or return to the emergency department at once. Take all antibiotics as prescribed unless you have an allergic reaction, in which case stop taking antibiotics immediately and call your doctor or return to the ED. Prescriptions: Cephalexin Monohydrate [Keflex 500 mg Capsule] 500 mg PO Q6H 5 Days #20 capsule
[2019-10-16 01:02] VITALS: BP 115/65
== END 2019-10-16 00:58 | disposition home or self-care (01) ==
LOC: ER 20:53
DX: L03.115 Cellulitis of right lower limb (principal); F17.200 Nicotine dependence, unspecified, uncomplicated; Z88.8 Allergy status to other drugs, medicaments and biological substances; Z98.84 Bariatric surgery status
CPT/HCPCS: 36415; 80048; 81025; 85025; 99284

== ENCOUNTER 2019-11-26 21:55 | Emergency (ER) | payer SELFPAY ==
--- NOTE | 2019-11-26 22:11 | ER Document Report ---
ED Medical Screen (RME) - General Chief Complaint: Insect Bite Stated Complaint: RIGHT THIGH SPIDER BITE Time Seen by Provider: 11/26/19 22:06 Mode of Arrival: Ambulatory Information source: Patient Notes: HPI; 44-year-old female presents the emergency room with possible spider bite to her posterior right thigh that happened a week ago. Has any increasing redness since Thursday. Denies any fevers. Has been using topical antibiotic ointment without relief. PE: Alert and oriented x3. Mild distress noted. There is approximately a 5 cm fluctuant abscess that is noted to the right posterior thigh. Tender to palpation. No active discharge or draining noted. Lungs: Clear to auscultation without rales, rhonchi, wheezes. Heart: Regular rate rhythm without murmurs, rubs, gallops. I have greeted and performed a rapid initial assessment of this patient. A comprehensive ED assessment and evaluation of the patient, analysis of test results and completion of the medical decision making process will be conducted by additional ED providers. I have specifically instructed the patient or family members with the patient to immediately return to any nursing staff should anything change in the patient's condition or with their chief complaint. TRAVEL OUTSIDE OF THE [place] IN LAST 30 DAYS: No - Related Data Allergies/Adverse Reactions: fluorescein [Fluorescein] Allergy (Verified 11/17/18 12:11) Past Medical History - Past Medical History Cardiac Medical History: Reports: Hx Hypertension - Resolved after weight loss Pulmonary Medical History: Reports: Hx Sleep Apnea - Resolved after weight loss Neurological Medical History: Reports: Hx Migraine Endocrine Medical History: Reports: Hx Diabetes Mellitus Type 2 - Resolved after weight loss, Hx Hypothyroidism Renal/ Medical History: Reports: Hx Ovarian Cysts GI Medical History: Reports: Hx Gastroesophageal Reflux Disease, Hx Ulcer Past Surgical History: Reports: Hx Abdominal Surgery - Laparoscopy finding adhesions between the liver and the old LAP-BAND port., Hx Cholecystectomy, Hx Gastric Bypass Surgery - Gastric sleeve, then LAP-BAND, then gastric bypass surgery in 2013, Hx Hysterectomy, Hx Tubal Ligation - Immunizations Hx Diphtheria, Pertussis, Tetanus Vaccination: Yes Physical Exam - Vital signs Vitals: Temp Pulse Resp BP Pulse Ox 98.5 F 70 22 H 113/68 99 11/26/19 22:00 11/26/19 22:00 11/26/19 22:00 11/26/19 22:00 11/26/19 22:00 Course - Vital Signs Vital signs: Temp Pulse Resp BP Pulse Ox 98.5 F 70 22 H 113/68 99 11/26/19 22:00 11/26/19 22:00 11/26/19 22:00 11/26/19 22:00 11/26/19 22:00
[2019-11-27] MEDS ORDERED: LIDOCAINE 1%/EPINEPHRINE INJ 20 ML VIAL INJ ONE (00:30)
[2019-11-27] MEDS ORDERED: OXYCODONE-ACETAMINOPHEN 5-325 MG TABLET PO ONE (00:31)
[2019-11-27] MEDS ORDERED: PROMETHAZINE HCL 25 MG TABLET PO ONE (00:31)
--- NOTE | 2019-11-27 00:34 | ER Document Report ---
ED Skin Rash/Insect Bite/Abscs - General Chief Complaint: Abscess Stated Complaint: RIGHT THIGH SPIDER BITE Time Seen by Provider: 11/26/19 22:06 Mode of Arrival: Ambulatory Notes: Patient is a 44-year-old female that comes to the emergency department for chief complaint of an abscess to the back of her right thigh worsening for 1 week. She states she saw a little bit of clear drainage come out a couple of days ago but there has been no significant drainage, area has become worse with increased swelling and pain. Patient denies fever/chills, nausea/vomiting, or history of the same. She does not have diabetes. TRAVEL OUTSIDE OF THE [place] IN LAST 30 DAYS: No - Related Data Allergies/Adverse Reactions: fluorescein [Fluorescein] Allergy (Verified 11/17/18 12:11) Past Medical History - General Information source: Patient - Social History Smoking Status: Current Every Day Smoker Chew tobacco use (# tins/day): No Frequency of alcohol use: Occasional Drug Abuse: None Lives with: Family Family History: Reviewed & Not Pertinent - Past Medical History Cardiac Medical History: Reports: Hx Hypertension - Resolved after weight loss Pulmonary Medical History: Reports: Hx Sleep Apnea - Resolved after weight loss Neurological Medical History: Reports: Hx Migraine Endocrine Medical History: Reports: Hx Diabetes Mellitus Type 2 - Resolved after weight loss, Hx Hypothyroidism Renal/ Medical History: Reports: Hx Ovarian Cysts GI Medical History: Reports: Hx Gastroesophageal Reflux Disease, Hx Ulcer Past Surgical History: Reports: Hx Abdominal Surgery - Laparoscopy finding adhesions between the liver and the old LAP-BAND port., Hx Cholecystectomy, Hx Gastric Bypass Surgery - Gastric sleeve, then LAP-BAND, then gastric bypass surgery in 2013, Hx Hysterectomy - hysterectomy, Hx Tubal Ligation - Immunizations Hx Diphtheria, Pertussis, Tetanus Vaccination: Yes Review of Systems - Review of Systems Constitutional: No symptoms reported EENT: No symptoms reported Cardiovascular: No symptoms reported Respiratory: No symptoms reported Gastrointestinal: No symptoms reported Genitourinary: No symptoms reported Female Genitourinary: No symptoms reported Musculoskeletal: No symptoms reported Skin: See HPI Hematologic/Lymphatic: No symptoms reported Neurological/Psychological: No symptoms reported Physical Exam - Vital signs Vitals: Temp Pulse Resp BP Pulse Ox 98.5 F 70 22 H 113/68 99 11/26/19 22:00 11/26/19 22:00 11/26/19 22:00 11/26/19 22:00 11/26/19 22:00 - Notes Notes: GENERAL: Alert, interacts well. No acute distress. HEAD: Normocephalic, atraumatic. EYES: Pupils equal, round, and reactive to light. Extraocular movements intact. ENT: Oral mucosa moist, tongue midline. Oropharynx unremarkable. Airway patent. LUNGS: Clear to auscultation bilaterally, no wheezes, rales, or rhonchi. No respiratory distress. Non-tender chest wall. HEART: Regular rate and rhythm. No murmur ABDOMEN: Soft, non-tender. Non-distended. EXTREMITIES: There is an indurated, fluctuant abscess in the right mid lateral posterior thigh with some mild surrounding cellulitis but no streaking away from the area. Normal knee, hip, ankle exam, normal distal neurovascular exam, unremarkable exam otherwise. BACK: no cervical, thoracic, lumbar midline tenderness. No saddle anesthesia, normal distal neurovascular exam. Moves all extremities in full range of motion. NEUROLOGICAL: Alert and oriented x3. Normal speech. Cranial nerves II through XII grossly intact. Strength 5/5 in all extremities. PSYCH: Normal affect, normal mood. SKIN: See extremity exam Course - Re-evaluation Re-evalutation: Patient with an isolated abscess in the right mid posterior lateral thigh which was clean, drained, packed. Placed patient on antibiotics. Discussed care, follow-up, and return precautions. Patient states understanding and agreement with plan. - Vital Signs Vital signs: Temp Pulse Resp BP Pulse Ox 97.4 F 64 14 104/50 L 100 11/27/19 01:46 11/27/19 01:46 11/27/19 01:46 11/27/19 01:46 11/27/19 01:46 Procedures - Incision and Drainage Right posterior thigh Type: Single Anesthetic type: 1% Lidocaine w/epi mL's of anesthetic: 8 I&D procedure: Shurclens applied, Iodoform packing placed, Sterile dressing applied Incision Method: Incision made by scalpel Amount/type of drainage: Moderate amount of purulent drainage, small amount of bloody drainage Discharge - Discharge Clinical Impression: Abscess Condition: Stable Disposition: HOME, SELF-CARE Additional Instructions: The abscess has been drained. Remove the packing from the area in 48 hours. Keep absorbing clean dressing over the area, clean the area with soap and water, take the antibiotic as prescribed to completion. Recommend that you rest and allow this to heal initially. Follow-up with primary care. Return if you worsen including developing or spreading redness, increased welling or pain, fever, or any other concerning symptoms. Prescriptions: Sulfamethoxazole/Trimethoprim [Bactrim Ds Tablet] 1 each PO BID #14 tablet Forms: Return to Work
[2019-11-27] MEDS ORDERED: SULFAMETHOXAZOLE/TRIMETHOPRIM 800-160 MG TABLET PO ONE (01:35)
[2019-11-27] MEDS ORDERED: HYDROCODONE/ACETAMINOPHEN 5-325 MG (6 TAB/ER DISP) PO PRN (01:35)
[2019-11-27 01:47] VITALS: BP 104/50
== END 2019-11-27 01:47 | disposition home or self-care (01) ==
LOC: ER 21:55
DX: L02.415 Cutaneous abscess of right lower limb (principal); L03.115 Cellulitis of right lower limb; F17.200 Nicotine dependence, unspecified, uncomplicated; Z91.041 Radiographic dye allergy status
CPT/HCPCS: 99283; 10060; J3490

== ENCOUNTER 2019-11-28 23:17 | Emergency (ER) | payer SELFPAY ==
--- NOTE | 2019-11-29 00:52 | ER Document Report ---
ED Medical Screen (RME) - General Chief Complaint: Skin Problem Stated Complaint: SKIN PROBLEM Time Seen by Provider: 11/29/19 00:51 Mode of Arrival: Ambulatory Information source: Patient Notes: Patient is a 44-year-old female presenting to the emergency department chief complaint of wound recheck for a "spider bite" that was drained here on Thursday. She states that the area is becoming more tender and is having more swelling. She states it hurts to stand. She denies any history of abscesses in the past. Large tender area of erythema to posterior right thigh. I have greeted and performed a rapid initial assessment of this patient. A comprehensive ED assessment and evaluation of the patient, analysis of test results and completion of the medical decision making process will be conducted by additional ED providers. I have specifically instructed the patient or family members with the patient to immediately return to any nursing staff should anything change in the patient's condition or with their chief complaint. TRAVEL OUTSIDE OF THE [place] IN LAST 30 DAYS: No - Related Data Allergies/Adverse Reactions: fluorescein [Fluorescein] Allergy (Verified 11/17/18 12:11) Past Medical History - Past Medical History Cardiac Medical History: Reports: Hx Hypertension - Resolved after weight loss Pulmonary Medical History: Reports: Hx Sleep Apnea - Resolved after weight loss Neurological Medical History: Reports: Hx Migraine Endocrine Medical History: Reports: Hx Diabetes Mellitus Type 2 - Resolved after weight loss, Hx Hypothyroidism Renal/ Medical History: Reports: Hx Ovarian Cysts GI Medical History: Reports: Hx Gastroesophageal Reflux Disease, Hx Ulcer Past Surgical History: Reports: Hx Abdominal Surgery - Laparoscopy finding adhesions between the liver and the old LAP-BAND port., Hx Cholecystectomy, Hx Gastric Bypass Surgery - Gastric sleeve, then LAP-BAND, then gastric bypass surgery in 2013, Hx Hysterectomy - hysterectomy, Hx Tubal Ligation - Immunizations Hx Diphtheria, Pertussis, Tetanus Vaccination: Yes Physical Exam - Vital signs Vitals: Temp Pulse Resp BP Pulse Ox 98.6 F 76 16 115/56 L 100 11/28/19 23:23 11/28/19 23:23 11/28/19 23:23 11/28/19 23:23 11/28/19 23:23 Course - Vital Signs Vital signs: Temp Pulse Resp BP Pulse Ox 98.6 F 76 16 115/56 L 100 11/28/19 23:23 11/28/19 23:23 11/28/19 23:23 11/28/19 23:23 11/28/19 23:23
[2019-11-29] MEDS ORDERED: LIDOCAINE 1%/EPINEPHRINE INJ 20 ML VIAL INJ ONE (04:41)
--- NOTE | 2019-11-29 04:49 | ER Document Report ---
ED Skin Rash/Insect Bite/Abscs - General Chief Complaint: Insect Bite Stated Complaint: SKIN PROBLEM Time Seen by Provider: 11/29/19 00:51 Mode of Arrival: Ambulatory Notes: Patient is a 44-year-old female who presents emergency department with a chief complaint of an abscess to her right posterior thigh. Patient states that she was here 2 days ago and had the abscess drained. Patient states that she continues to have tenderness to the area. States that she has been by a spider. Patient was started on Bactrim. Patient denies any fever, body aches, or chills. Denies any history of diabetes. TRAVEL OUTSIDE OF THE [place] IN LAST 30 DAYS: No - Related Data Allergies/Adverse Reactions: fluorescein [Fluorescein] Allergy (Verified 11/17/18 12:11) Home Medications: Bactrim. Hydrocodone Past Medical History - General Information source: Patient - Social History Smoking Status: Current Every Day Smoker Chew tobacco use (# tins/day): No Frequency of alcohol use: Occasional Drug Abuse: None Family History: Reviewed & Not Pertinent - Past Medical History Cardiac Medical History: Reports: Hx Hypertension - Resolved after weight loss Pulmonary Medical History: Reports: Hx Sleep Apnea - Resolved after weight loss Neurological Medical History: Reports: Hx Migraine Endocrine Medical History: Reports: Hx Diabetes Mellitus Type 2 - Resolved after weight loss, Hx Hypothyroidism Renal/ Medical History: Reports: Hx Ovarian Cysts GI Medical History: Reports: Hx Gastroesophageal Reflux Disease, Hx Ulcer Past Surgical History: Reports: Hx Abdominal Surgery - Laparoscopy finding adhesions between the liver and the old LAP-BAND port., Hx Cholecystectomy, Hx Gastric Bypass Surgery - Gastric sleeve, then LAP-BAND, then gastric bypass surgery in 2013, Hx Hysterectomy - hysterectomy, Hx Tubal Ligation - Immunizations Hx Diphtheria, Pertussis, Tetanus Vaccination: Yes Review of Systems - Review of Systems Notes: REVIEW OF SYSTEMS: CONSTITUTIONAL : Denies recent illness. Denies recent unintentional weight loss. Denies fever, chills, or sweats. EENT: Denies eye, ear, throat, or mouth pain, discharge, or symptoms. Denies nasal or sinus congestion. CARDIOVASCULAR: Denies chest pain. RESPIRATORY: Denies shortness of breath, cough, congestion, difficulty breathing, or wheezing. GASTROINTESTINAL: Denies nausea, vomiting, and diarrhea. Denies abdominal pain. Denies constipation. GENITOURINARY: Denies difficulty urinating, burning, blood in urine, urgency or frequency. MUSCULOSKELETAL: Denies neck and back pain. Denies joint pain or swelling. SKIN: See HPI. HEMATOLOGIC : Denies easy bruising or bleeding. LYMPHATIC: Denies swollen, painful, enlarged glands. NEUROLOGICAL: Denies no numbness or tingling denies weakness. Denies headache. Denies altered mental status. Denies alteration in speech. PSYCHIATRIC: Denies stress, anxiety, alteration in sleep patterns, or depression. All other systems reviewed and negative. Physical Exam - Vital signs Vitals: Temp Pulse Resp BP Pulse Ox 98.6 F 76 16 115/56 L 100 11/28/19 23:23 11/28/19 23:23 11/28/19 23:23 11/28/19 23:23 11/28/19 23:23 - Notes Notes: PHYSICAL EXAMINATION: GENERAL: Appears well, healthy, well-nourished, no acute distress. HEAD: Normocephalic, atraumatic. EYES: PERRL, conjunctiva normal, all extraocular movements intact, sclera nonicteric ENT: Moist mucous membranes. NECK: Supple, no noticeable swelling, redness, rash. Normal range of motion. LUNGS: Equal breath sounds bilaterally and clear to auscultation. No wheezes rales or rhonchi. CARDIOVASCULAR: S1-S2, regular rate, regular rhythm. Radial pulses 2+, normal. ABDOMEN: Normoactive bowel sounds. Soft, nontender, no guarding, no rebound tenderness, and no masses palpated. EXTREMITIES: Normal strength and range of motion, no pitting or edema. No cyanosis. NEUROLOGICAL: Moves all extremities upon command. Strength 5/5 in all extremities. PSYCH: Normal mood, normal affect. SKIN: Warm, dry. Abscess with packing and erythema noted to right posterior leg. Course - Re-evaluation Re-evalutation: 11/29/19 04:48 Discussed options with the patient of possibly being admitted for cellulitis, but she states that she does not want that at this time. She states that she would much rather be started on Keflex at home and follow-up for wound care in 2 days. 11/29/19 05:44 Abscess was undressed and I was able to express more purulent drainage from the area and to pack the abscess deeper. Patient tolerated procedure well. Noticed that the patient had some ecchymosis noted after the incision and drainage was done. I suspect the patient is very sensitive to lidocaine with epinephrine. When she comes back to have her packing repacked, I highly recommend that only lidocaine be used. We will send the patient home with Calera for pain relief. We will also start her on Keflex to cover cellulitis. She is in agreement with this plan. Follow-up precautions were given. Verbal discharge instructions were given to the patient. They verbalized understanding. They are stable for discharge. - Vital Signs Vital signs: Temp Pulse Resp BP Pulse Ox 98.7 F 80 16 120/84 100 11/29/19 06:39 11/29/19 06:39 11/29/19 06:39 11/29/19 06:39 11/29/19 06:39 Procedures - Incision and Drainage Right Posterior Thigh Type: Multiple Anesthetic type: 1% Lidocaine w/epi mL's of anesthetic: 8 Blade size: 11 I&D procedure: Shurclens applied, Iodoform packing placed Incision Method: Incision made by scalpel Amount/type of drainage: 10 mls/mixed purulent and blood Discharge - Discharge Clinical Impression: Abscess Condition: Stable Disposition: HOME, SELF-CARE Instructions: Cephalexin ([facility]), Post Incision and Drainage Additional Instructions: You were seen for an abscess that required more drainage. Change the dressings twice a day. Return in 2 days for wound recheck. Start Keflex. If you develop a fever, nausea, or vomiting, please return to the emergency department immediately. Prescriptions: Cephalexin Monohydrate [Keflex 500 mg Capsule] 500 mg PO Q6H 7 Days #28 capsule Forms: Return to Work
[2019-11-29] MEDS ORDERED: HYDROCODONE/ACETAMINOPHEN 5-325 MG TABLET PO ONE (05:08)
[2019-11-29] MEDS ORDERED: CEPHALEXIN 500 MG CAPSULE PO ONE (05:44)
[2019-11-29] MEDS ORDERED: HYDROCODONE/ACETAMINOPHEN 5-325 MG (6 TAB/ER DISP) PO PRN (05:49)
[2019-11-29 06:40] VITALS: BP 120/84
== END 2019-11-29 06:39 | disposition home or self-care (01) ==
LOC: ER 23:17
DX: L02.415 Cutaneous abscess of right lower limb (principal); F17.200 Nicotine dependence, unspecified, uncomplicated; Z79.891 Long term (current) use of opiate analgesic; Z91.041 Radiographic dye allergy status
CPT/HCPCS: 99283; 10061; J3490

== ENCOUNTER 2019-12-01 17:30 | Emergency (ER) | payer SELFPAY ==
[2019-12-01 17:44] VITALS: BP 106/69
--- NOTE | 2019-12-01 18:49 | ER Document Report ---
ED Suture/Wound Recheck - General Chief Complaint: Abscess Recheck Stated Complaint: RECHECK ABSCESS/RIGHT THIGH Time Seen by Provider: 12/01/19 18:46 Primary Care Provider: [facility] [Provider Group] - Follow up as needed [facility] [Provider Group] - Follow up as needed [facility] [Provider Group] - Follow up as needed Mode of Arrival: Ambulatory Information source: Patient Notes: 44-year-old female presented to ED for recheck of abscess to the right posterior thigh. She did have an I&D completed on 11/28/2019. She did have packing in the abscess. She states she was started on Bactrim and Keflex at that time. She states the pain is much better. She is alert oriented respirations regular and unlabored speaking in full sentences. TRAVEL OUTSIDE OF THE [place] IN LAST 30 DAYS: No - HPI Previous ED treatment: I&D of abscess Antibiotics given previously: Prescription Quality of pain: Other Severity: Mild Pain Level: 2 Symptoms since procedure: Pain Exacerbated by: Other - Sure to the area Relieved by: Denies - Related Data Allergies/Adverse Reactions: fluorescein [Fluorescein] Allergy (Verified 12/01/19 18:29) Past Medical History - General Information source: Patient - Social History Smoking Status: Current Every Day Smoker Cigarette use (# per day): Yes Smoking Education Provided: Yes - 2 minutes Frequency of alcohol use: Occasional Drug Abuse: None Family History: Reviewed & Not Pertinent Patient has suicidal ideation: No Patient has homicidal ideation: No - Past Medical History Cardiac Medical History: Reports: Hx Hypertension - Resolved after weight loss Pulmonary Medical History: Reports: Hx Sleep Apnea - Resolved after weight loss Neurological Medical History: Reports: Hx Migraine Endocrine Medical History: Reports: Hx Diabetes Mellitus Type 2 - Resolved after weight loss, Hx Hypothyroidism Renal/ Medical History: Reports: Hx Ovarian Cysts Malignancy Medical History: Reports: None GI Medical History: Reports: Hx Gastroesophageal Reflux Disease, Hx Ulcer Musculoskeletal Medical History: Reports None Skin Medical History: Reports None Psychiatric Medical History: Reports: None Traumatic Medical History: Reports: None Infectious Medical History: Reports: None Past Surgical History: Reports: Hx Abdominal Surgery - Laparoscopy finding adhesions between the liver and the old LAP-BAND port., Hx Cholecystectomy, Hx Gastric Bypass Surgery - Gastric sleeve, then LAP-BAND, then gastric bypass surgery in 2013, Hx Hysterectomy - hysterectomy, Hx Tubal Ligation - Immunizations Hx Diphtheria, Pertussis, Tetanus Vaccination: Yes Review of Systems - Review of Systems Constitutional: No symptoms reported EENT: No symptoms reported Cardiovascular: No symptoms reported Respiratory: No symptoms reported Gastrointestinal: No symptoms reported Genitourinary: No symptoms reported Female Genitourinary: No symptoms reported Musculoskeletal: No symptoms reported Skin: Other - Recheck abscess of right posterior thigh. Packing was removed abscess irrigated with saline 20 cc and dressing applied. Patient was instructed for cleaning and dressing abscess and to continue taking them antibiotics. Hematologic/Lymphatic: No symptoms reported Neurological/Psychological: No symptoms reported Physical Exam - Vital signs Vitals: Temp Pulse Resp BP Pulse Ox 98.1 F 68 16 106/69 95 12/01/19 17:43 12/01/19 17:43 12/01/19 17:43 12/01/19 17:43 12/01/19 17:43 Interpretation: Normal - General General appearance: Appears well, Alert - HEENT Head: Normocephalic, Atraumatic Eyes: Normal Pupils: PERRL - Respiratory Respiratory status: No respiratory distress Chest status: Nontender Breath sounds: Normal Chest palpation: Normal - Cardiovascular Rhythm: Regular Heart sounds: Normal auscultation Murmur: No - Abdominal Inspection: Normal Distension: No distension Bowel sounds: Normal Tenderness: Nontender Organomegaly: No organomegaly - Back Back: Normal, Nontender - Extremities General upper extremity: Normal inspection, Nontender, Normal color, Normal ROM, Normal temperature General lower extremity: Normal inspection, Nontender, Normal color, Normal ROM, Normal temperature, Normal weight bearing. No: Susan's sign - Neurological Neuro grossly intact: Yes Cognition: Normal Orientation: AAOx4 [place] Coma Scale Eye Opening: Spontaneous [place] Coma Scale Verbal: Oriented [place] Coma Scale Motor: Obeys Commands [place] Coma Scale Total: 15 Speech: Normal Motor strength normal: LUE, RUE, LLE, RLE Sensory: Normal - Psychological Associated symptoms: Normal affect, Normal mood - Skin Skin Temperature: Warm Skin Moisture: Dry Skin Color: Normal Location of irregularity: Other - Abscess to right posterior thigh with packing from previous I&D. Patient states there is mild tenderness until I removed the packing no redness no drainage Course - Re-evaluation Re-evalutation: 12/01/19 22:29 Dressing removed from abscess to the right posterior thigh packing was removed abscess irrigated with saline 20 cc and dressing applied. Patient was instructed for cleaning and dressing abscess and to continue taking them antibiotics. Patient was given instructions on Epson salt. Verbalized understanding and agreement treatment plan patient was discharged home. - Vital Signs Vital signs: Temp Pulse Resp BP Pulse Ox 98.1 F 68 16 106/69 95 12/01/19 17:43 12/01/19 17:43 12/01/19 17:43 12/01/19 17:43 12/01/19 17:43 Discharge - Discharge Clinical Impression: Encounter for recheck of abscess following incision and drainage Condition: Stable Disposition: HOME, SELF-CARE Additional Instructions: You were seen today for recheck of your abscess. The packing was removed from your abscess. It is important that you clean this area 2-3 times a day and then use the Epson salt as listed below. Epsom Salt Soaks Soak the wound area in a container of warm epsom salt water. If you can't get the wound area into a bucket or rider, use a folded towel soaked in the epsom salt solution and apply to the area. Use clean hot tap water (about the temperature of a very warm bath), mixing in about one (1) teaspoon for every pint of water. Two gallon --> 16 teaspoons Epsom Salts One gallon --> 8 teaspoons Epsom Salts Two quarts --> 4 teaspoons Epsom Salts One quart --> 2 teaspoons Epsom Salts Soak the wound for about 20 minutes while gently moving it around in the water. Repeat this four (4) times a day. Please continue the antibiotics as prescribed. Please use narcotics only if you absolutely need to. Return to the ED for any increasing pain swelling or drainage. FOLLOW-UP CARE: Most simple abscesses will not require a follow up visit. If you had packing placed in the abscess, remove it as instructed by the physician. If you have been referred to a physician for follow-up care, call the physicians office for an appointment as you were instructed or within the next two days. If you experience worsening or a significant change in your symptoms, return to the Emergency Department at any time for re-evaluation. Forms: Return to Work Referrals: [facility] [Provider Group] - Follow up as needed [facility] [Provider Group] - Follow up as needed [facility] [Provider Group] - Follow up as needed
== END 2019-12-01 18:50 | disposition home or self-care (01) ==
LOC: ER 17:30
DX: L02.415 Cutaneous abscess of right lower limb (principal); Z48.01 Encounter for change or removal of surgical wound dressing; F17.210 Nicotine dependence, cigarettes, uncomplicated; Z91.041 Radiographic dye allergy status
CPT/HCPCS: 99282

== ENCOUNTER 2020-01-04 19:51 | Emergency (ER) | payer SELFPAY ==
--- NOTE | 2020-01-04 23:00 | ER Document Report ---
ED Respiratory Problem - General Chief Complaint: Nonproductive Cough Stated Complaint: COUGH,CHILLS,SORE THROAT,ACHES Time Seen by Provider: 01/04/20 21:46 Notes: CHIEF COMPLAINT: Cough HPI: 44-year-old female presenting with chills and cough for the last 3 days. States 2 coworkers are under investigation for COVID. Believes 1 of them may have tested positive. Occasional shortness of breath no chest pain. No abdominal pain nausea vomiting. ROS: See HPI - all other systems were reviewed and are otherwise negative Constitutional: no fever Eyes: no drainage, no blurred vision ENT: no runny nose, no sore throat Cardiovascular: no chest pain Resp: Occasional SOB, + cough GI: no vomiting, no diarrhea, no abdominal pain : no dysuria Integumentary: no rash Allergy: no hives Musculoskeletal: no extremity pain or swelling Neurological: no numbness/tingling, no weakness MEDICATIONS: I agree with the patient medications as charted by the RN. ALLERGIES: I agree with the allergies as charted by the RN. PAST MEDICAL HISTORY/PAST SURGICAL HISTORY: Reviewed and agree as charted by RN. SOCIAL HISTORY: Reviewed and agree as charted by RN. FAMILY HISTORY: No significant familial comorbid conditions directly related to patient complaint EXAM: Reviewed vital signs as charted by RN. CONSTITUTIONAL: Alert and oriented and responds appropriately to questions. Well-appearing; well-nourished HEAD: Normocephalic; atraumatic EYES: PERRL; Conjunctivae clear, sclerae non-icteric ENT: normal nose; no rhinorrhea; moist mucous membranes; pharynx without lesions noted, no uvula edema or deviation, no tonsillar hypertrophy, phonation normal NECK: Supple without meningismus; non-tender; no cervical lymphadenopathy, no masses CARD: RRR; no murmurs, no clicks, no rubs, no gallops; symmetric distal pulses RESP: Normal chest excursion without splinting or tachypnea; breath sounds clear and equal bilaterally; no wheezes, no rhonchi, no rales, pulse oximetry 99% on room air not hypoxic ABD/GI: Normal bowel sounds; non-distended; soft, non-tender, no rebound, no guarding; no palpable organomegaly or masses. BACK: The back appears normal and is non-tender to palpation, there is no CVA tenderness EXT: Normal ROM in all joints; non-tender to palpation; no cyanosis, no effusions, no edema SKIN: Normal color for age and race; warm; dry; good turgor; no acute lesions noted NEURO: Moves all extremities equally; Motor and sensory function intact PSYCH: The patient's mood and manner are appropriate. Grooming and personal hygiene are appropriate. MDM: 44-year-old female presenting with cough occasional shortness of breath no chest pain to suggest ACS. Concerned about COVID because of multiple possible exposures at work. Will obtain cover testing and a chest x-ray to ensure no infiltrate or pneumonia. If chest x-ray negative will discharge as a person under investigation for COVID-19 with prescription for albuterol inhaler. TRAVEL OUTSIDE OF THE [place] IN LAST 30 DAYS: No - Related Data Allergies/Adverse Reactions: fluorescein [Fluorescein] Allergy (Verified 12/01/19 18:29) Past Medical History - Social History Smoking Status: Current Every Day Smoker Chew tobacco use (# tins/day): No Frequency of alcohol use: Occasional Drug Abuse: None Family History: Reviewed & Not Pertinent Patient has homicidal ideation: No - Past Medical History Cardiac Medical History: Reports: Hx Hypertension - Resolved after weight loss Pulmonary Medical History: Reports: Hx Sleep Apnea - Resolved after weight loss Neurological Medical History: Reports: Hx Migraine Endocrine Medical History: Reports: Hx Diabetes Mellitus Type 2 - Resolved after weight loss, Hx Hypothyroidism Renal/ Medical History: Reports: Hx Ovarian Cysts GI Medical History: Reports: Hx Gastroesophageal Reflux Disease, Hx Ulcer - gastric Past Surgical History: Reports: Hx Abdominal Surgery - Laparoscopy finding adhesions between the liver and the old LAP-BAND port., Hx Cholecystectomy, Hx Gastric Bypass Surgery - Gastric sleeve, then LAP-BAND, then gastric bypass surgery in 2013, Hx Hysterectomy - hysterectomy, Hx Tubal Ligation - Immunizations Hx Diphtheria, Pertussis, Tetanus Vaccination: Yes Physical Exam - Vital signs Vitals: Temp Pulse Resp BP Pulse Ox 98.6 F 57 L 18 123/77 100 01/04/20 21:35 01/04/20 21:35 01/04/20 21:35 01/04/20 21:35 01/04/20 21:35 Course - Re-evaluation Re-evalutation: 01/04/20 23:24 Chest x-ray on my review does not show evidence of infiltrate, will treat as PUI, follow up PCP, return instructions given - Vital Signs Vital signs: Temp Pulse Resp BP Pulse Ox 98.6 F 57 L 18 123/77 100 01/04/20 21:43 01/04/20 21:35 01/04/20 21:35 01/04/20 21:35 01/04/20 21:35 Discharge - Discharge Clinical Impression: Cough, Person under investigation for COVID-19 Condition: Stable Disposition: HOME, SELF-CARE Additional Instructions: Use the albuterol inhaler 2 puffs every 4 hours as needed for shortness of breath or cough. Continue [id number] cough medications. You are considered a person under investigation for COVID-19 at this time, self quarantine at home until you have a test result which usually takes 2 to 5 days. You should hear from someone at the hospital with your test results. Follow- up with your primary care provider return for worsening condition Prescriptions: Albuterol Sulfate [Proair HFA Inhalation Aerosol 8.5 gm MDI] 2 puff IH Q4H PRN #1 mdi PRN Reason: Forms: Return to Work Referrals: SHAMEKA STRAUSS MD [ACTIVE STAFF] - Follow up as needed
--- NOTE | 2020-01-04 23:49 | RADIOLOGY REPORT (SQ) ---
EXAM DESCRIPTION: XR CHEST 1 VIEW COMPLETED DATE/TME: 01/04/2020 22:53 CLINICAL HISTORY: 44 years, Female, cough COMPARISON: 11/17/2018 chest NUMBER OF VIEWS: 1 TECHNIQUE: Portable chest LIMITATIONS: None. FINDINGS: The heart size is normal. Lungs are clear. No pneumothorax IMPRESSION: Negative chest copyright 2010 [employer]- All Rights Reserved
[2020-01-04 23:50] VITALS: BP 107/77
== END 2020-01-04 23:51 | disposition home or self-care (01) ==
LOC: ER 19:51
DX: R05 Cough (principal); R68.83 Chills (without fever); R06.02 Shortness of breath; F17.200 Nicotine dependence, unspecified, uncomplicated; Z91.041 Radiographic dye allergy status; Z20.828 Contact with and (suspected) exposure to other viral communicable diseases
CPT/HCPCS: 99284; 87635; 71045; C9803